=== PATIENT | male | born 1970 | race Caucasian/White ===

== ENCOUNTER → 2017-02-25 | Outpatient (CLI) | payer OTHER | END | disposition home or self-care (01) | LOC: RAD 12:02 | PROVIDERS: ATTEND Family Medicine | DX: M51.37 Other intervertebral disc degeneration, lumbosacral region (principal); M47.897 Other spondylosis, lumbosacral region; M54.16 Radiculopathy, lumbar region; M25.552 Pain in left hip | CPT/HCPCS: 72110 ==

== ENCOUNTER 2018-04-05 09:57 | Emergency (ER) | payer OTHER ==
[~2018-04-05] VITALS: Ht 177.8 cm; Wt 88.0 kg
[~2018-04-05 09:57] MED LIST: LISI-167 PO
[2018-04-05 09:59] VITALS: BP 142/92
== END 2018-04-05 13:35 | disposition home or self-care (01) ==
LOC: ED 13:00
DX: M25.461 Effusion, right knee (principal); S83.241A Other tear of medial meniscus, current injury, right knee, initial encounter; X58.XXXA Exposure to other specified factors, initial encounter; Y93.89 Activity, other specified; Y99.8 Other external cause status; Y92.89 Other specified places as the place of occurrence of the external cause
CPT/HCPCS: 99284